=== PATIENT | female | born 1980 | race Caucasian/White ===

== ENCOUNTER → 2017-01-02 | Outpatient (CLI) | payer OTHER | LOC: BRMIMAGING 10:00 | PROVIDERS: ATTEND Physician Assistant | DX: M79.672 Pain in left foot (principal); M25.572 Pain in left ankle and joints of left foot; M79.89 Other specified soft tissue disorders | CPT/HCPCS: 73610-PO; 73630-PO ==

== ENCOUNTER → 2019-02-15 | Outpatient (CLI) | payer OTHER | LOC: BRMIMAGING 07:36 | PROVIDERS: ATTEND Hospitalist | DX: Z12.31 Encounter for screening mammogram for malignant neoplasm of breast (principal) ==